=== PATIENT | female | born 1935 | race Two or more races ===

== ENCOUNTER 2020-07-02 12:36 | Outpatient (CLI) | payer OTHER | END 2020-07-02 15:55 | disposition home or self-care (01) | LOC: PPH VACUNA 12:36 | PROVIDERS: ATTEND Emergency Medicine Pediatric Emergency Medicine | DX: Z23 Encounter for immunization (principal) ==

== ENCOUNTER → 2020-07-23 08:00 | Outpatient (CLI) | payer OTHER | END | disposition home or self-care (01) | LOC: PPH VACUNA 08:00 | PROVIDERS: ATTEND Emergency Medicine Pediatric Emergency Medicine | DX: Z23 Encounter for immunization (principal) ==

== ENCOUNTER 2020-08-16 10:12 | Outpatient (CLI) | payer OTHER | END 2020-08-16 10:50 | disposition home or self-care (01) | LOC: OFIC 805 10:12 | PROVIDERS: ATTEND Otolaryngology Otology & Neurotology | DX: H73.22 Unspecified myringitis, left ear (principal); H92.12 Otorrhea, left ear ==

== ENCOUNTER 2020-09-04 14:25 | Outpatient (CLI) | payer OTHER | END 2020-09-04 17:24 | disposition home or self-care (01) | LOC: OFIC 805 14:25 | PROVIDERS: ATTEND Otolaryngology Otology & Neurotology | DX: H73.22 Unspecified myringitis, left ear (principal); H92.12 Otorrhea, left ear ==

== ENCOUNTER 2020-10-03 08:55 | Outpatient (CLI) | payer OTHER | END 2020-10-03 15:00 | disposition home or self-care (01) | LOC: LAB 08:55 | DX: Z03.818 Encounter for observation for suspected exposure to other biological agents ruled out (principal) ==

== ENCOUNTER 2024-03-15 09:10 | Outpatient (CLI) | payer OTHER | END 2024-03-15 09:14 | disposition home or self-care (01) | LOC: RAD 09:10 | DX: L97.522 Non-pressure chronic ulcer of other part of left foot with fat layer exposed (principal) ==